=== PATIENT | male | born 1985 | race Caucasian/White ===

== ENCOUNTER 2024-10-10 14:00 | Outpatient (REF) | payer SELFPAY ==
[2024-10-10 16:34] LABS: Alanine Aminotransferase 19 U/L (0-40); Albumin Level 4.3 g/dL (3.5-5.0); Alkaline Phosphatase 79 U/L (39-117); Anion Gap 9 (12-20); Aspartate Amino Transferase 23 U/L (5-37); Bilirubin Total 0.5 mg/dL (0.0-1.0); Blood Urea Nitrogen 9 mg/dL (9-16); Calcium 9.2 mg/dL (8.4-10.2); Carbon Dioxide 26 mmol/L (22-29); Chloride 109 mmol/L (96-108); Cholesterol 151 mg/dL (<200); Estimated Glomerular Filt Rate > 60; Glucose Random 90 mg/dL (60-115); HDL Cholesterol 40 mg/dL (>40); LDL Cholesterol Calculated 97 mg/dL (<100); Sodium 140 mmol/L (135-145); Total Protein 7.2 g/dL (6.5-8.0); Triglycerides 73 mg/dL (<150)
[2024-10-10 16:51] LABS: TSH reflex Free T4 1.08 uIU/mL (0.32-4.0)
[2024-10-10 17:41] LABS: Reflex LDLD? No
[2024-10-13 09:19] LABS: TS Negative Control Passed; TS Panel A 0; TS Panel B 0; TS Positive Control Passed; TSpotTB Negative (Negative)
== END 2024-10-10 14:01 | disposition home or self-care (01) ==
LOC: HO.HHCL 14:00
PROVIDERS: Visit Provider Internal Medicine
DX: E66.3 Overweight (principal); F33.1 Major depressive disorder, recurrent, moderate
CPT/HCPCS: 36415; 80053; 80061; 84443; 86481

== ENCOUNTER 2025-04-19 18:35 | Inpatient (IN) | payer OTHER, SELFPAY ==
[2025-04-19 18:41] VITALS: BP 121/73; PULSE 110; RESP 16; TEMP 37.1; O2SAT 97; BMI 39.0
--- NOTE | 2025-04-19 19:15 | PC.NURSE ---
pt to [facility] from [facility], axox4 ambulatory with steady gait. global climate change analyst done prior to pt being brought over to pod.
--- NOTE | 2025-04-19 20:08 | ECG_ITS ---
Test Reason : MED CLEARANCE Blood Pressure : */* mmHG Vent. Rate : 78 BPM Atrial Rate : 78 BPM P-R Int : 140 ms QRS Dur : 78 ms QT Int : 348 ms P-R-T Axes : 61 64 41 degrees QTcB Int : 396 ms Normal sinus rhythm Normal ECG No previous ECGs available Referred By: Aurora Dutta Electronically Signed By: Mian Sheppard
[2025-04-19 21:07] LABS: MANUAL DIFF FLAG NO
[2025-04-19 21:08] LABS: Hematocrit 43.4 % (42.0-52.0); Hemoglobin 15.4 g/dl (14.0-18.0); Imm Gran Abs Auto 0.03 X10*3/uL (0.00-0.03); Imm Gran Pct Auto 0.3 % (0.0-0.4); Lymphocytes Absolute Auto 1.4 X10*3/uL (1.2-4.9); Mean Corpuscular HGB Conc 35.5 g/dl (31.0-36.0); Mean Corpuscular Hemoglobin 31.9 pg (27.0-33.0); Mean Corpuscular Volume 89.9 fL (80.0-98.0); NRBC Abs Auto 0.000 X10*3/uL (0.0-0.012); NRBC Pct Auto 0.0 /100WBC (0.0-0.2); Platelet Count 209 X10*3/uL (160-400); Red Blood Count 4.83 X10*6/uL (4.60-5.80); White Blood Count 10.6 X10*3/uL (4.8-10.8)
--- NOTE | 2025-04-19 21:21 | ED_ITS ---
HPI - General Adult General Chief complaint: Psychiatric Symptoms Stated complaint: hallucinations, SI Time Seen by Provider: 04/19/25 20:11 Source: patient Mode of arrival: EMS Limitations: altered mental status History of Present Illness ED Provider: Sara Tan PA-C HPI narrative: Patient is a 39 year old male who presents to the ED for auditory hallucinations. He reports these hallucinations began in 2018 after an incident at his [employer]. He states I knelt down to pray and felt something enter me and it took my breath away and I . The voices do not make commands. Reported SI in triage stating he believes he is god and must kill himself to gain insight, but states ?not really? when I asked about harming himself or others. Reports he feels tired and stressed because of the voices. Denies any triggers for increasing stress. Denies visual hallucinations. Reports taking trazodone and abilify. Has not been compliant with medication for the past week. Has therapy twice a month and psychiatry once a month.? Onset (ago): year(s) Related Data Previous Rx's ?Medication ?Instructions ?Recorded aripiprazole 30 mg tablet 30 mg PO DAILY 30 days #30 t abs 04/24/25 melatonin 5 mg tablet 10 mg (2 x 5 mg) PO BEDTIME 04/24/25 insomnia 30 days #60 tabs nicotine 14 mg/24 hr daily 14 mg transdermal DAILY PRN 04/24/25 transdermal patch smoking cessation 28 days #2 8 ea olanzapine 5 mg tablet 5 mg PO BID PRN agitation/vo ices 04/24/25 30 days #60 tabs trazodone 100 mg tablet 200 mg (2 x 100 mg) PO BEDTI ME 30 04/24/25 days #60 tabs Allergies Allergy/AdvReac Type Severity Reaction Status Date / Time From VICODIN AdvReac Severe NAUSEA & Uncoded 06/17/20 15:21 VOMITING Review of Systems 2 Review of Systems: Unable to obtain Yes all other systems are reviewed and are negative [facility] Past Medical History Attestation statement: The following information was validated with the patient. Social History Social History Household Members: None Housing: Homeless Do you presently have visiting nurse or other home services: No Patient Tobacco Use Status: Current everyday Tobacco user Tobacco use type: Cigarette Cigarettes Per Day: 8 e-Cigarette/Vaping Use: Never Used Second Hand Smoke Exposure: Yes Substance Use Type: Marijuana service: No Sexual orientation: Unable to collect Physical Exam ED Vital Signs: Vital Signs - 24 hr 04/20/25 22:46 04/21/25 06:39 Temperature 97.7 F 98.7 F Pulse Rate 90 71 Respiratory Rate 16 18 Blood Pressure 137/71 100/72 Pulse Oximetry 100 99 Oxygen Delivery Method Room Air Room Air BMI result Body Mass Index 39.0 Const Other: Alert Orientation/consciousness: patient oriented x3 Resp Effort & Inspection: normal respiratory effort Cardio Other: Normal peripheral perfusion Skin Other: Warm dry no rash Neuro General: patient oriented x3, gait normal, no focal motor deficits and CN's II- XI intact bilaterally Psych Other: Cooperative for us in the ER, having auditory hallucinations Course Reevaluation(s) Reevaluation #1: Time: 01:56 Date: 04/20/25 Provider: VICTOR HUGO Garcia Patient in physician observation for psychiatric evaluation.? No acute events reported overnight. No current complaints. VS stable.? Patient is in bed search status/pending CARE team evaluation. Will continue to monitor. Time: 01:56 Reevaluation #2: Time: 07:05 Date: 04/20/25 Provider: Edmundo Sarabia MD Patient in physician observation for psychiatric evaluation.? No acute events reported overnight. No current complaints. VS stable.? Patient is in bed search status/pending CARE team evaluation. Will continue to monitor. Time: 07:05 Reevaluation #3: Time: 07:16 Date: 04/21/25 Provider: Edmundo Sarabia MD Patient in physician observation for psychiatric evaluation.? No acute events reported overnight. No current complaints. VS stable.? Patient is in bed search status/pending CARE team evaluation. Will continue to monitor. Additional Reevaluation(s): 04/21 15:56 patient will be admitted to the psychiatric unit this and end observation status Medications Administered Discontinued Medications Generic Name Dose Route Start Last Admin Trade Name Freq PRN Reason Stop Dose Admin Acetaminophen 650 mg 04/22/25 15:11 04/23/25 21:31 Acetaminophen 325 Mg Tablet PO 650 mg Q6H PRN Administration Pain, mod - severe Aripiprazole 30 mg 04/20/25 09:00 04/24/25 08:57 Aripiprazole 30 Mg Tablet PO 30 mg DAILY YUNG Administration Hydroxyzine HCl 25 mg 04/21/25 14:42 04/24/25 05:19 Hydroxyzine Hcl 25 Mg Tablet PO 25 mg Q6H PRN Administration mild anxiety Lorazepam 2 mg 04/20/25 23:47 04/20/25 23:57 Lorazepam 1 Mg Tablet PO 04/20/25 23:48 2 mg ONCE ONE Administration Melatonin 9 mg 04/20/25 04:00 04/23/25 21:30 Melatonin 3 Mg Tablet PO 9 mg BEDTIME YUNG Administration Nicotine 14 mg 04/21/25 16:30 04/24/25 08:56 Nicotine 14 Mg Patch.Td24 TRANSDERMA 14 mg DAILY YUNG Administration Olanzapine 5 mg 04/21/25 14:42 04/24/25 05:19 Olanzapine 5 Mg Tablet PO 5 mg Q4H PRN Administration agitation Trazodone HCl 150 mg 04/20/25 04:00 04/22/25 20:55 Trazodone Hcl 50 Mg Tablet PO 150 mg BEDTIME YUNG Administration Trazodone HCl 200 mg 04/23/25 21:00 04/23/25 21:30 Trazodone Hcl 100 Mg Tablet PO 200 mg BEDTIME YUNG Administration Medical Decision Making Medical Decision Making MDM Narrative: Patient is a 39 year old male who presents to the ED for auditory hallucinations. He reports these hallucinations began in 2018 after an incident at his [employer]. He states I knelt down to pray and felt something enter me and it took my breath away and I . The voices do not make commands. Reported SI in triage stating he believes he is god and must kill himself to gain insight, but states ?not really? when I asked about harming himself or others. Reports he feels tired and stressed because of the voices. Denies any triggers for increasing stress. Denies visual hallucinations. Reports taking trazodone and abilify. Has not been compliant with medication for the past week. Has therapy twice a month and psychiatry once a month.? Problem: Psychiatric illness History: Per patient I have considered the following differential diagnoses: Decompensated psychiatric illness, drug/alcohol intoxication, SI, HI Plan: The patient is certainly appears decompensated, he is also suicidal. Unclear with the patient's baseline is, collateral information we will not be obtained until tomorrow when the care team can assess him. He arrives as a section 12, screening labs including serum ethanol and drug screen we will be obtained I have independently reviewed the following tests: Labs: No leukocytosis, not anemic, no electrolyte abnormality noted, ethanol less than 10, drug screen pending Lab Data 04/19/25 21:00 04/19/25 21:00 Labs: Lab Results 04/19/25 04/20/25 Range/Units 21:00 09:29 WBC 10.6 (4.8-10.8) X10*3/uL RBC 4.83 (4.60-5.80) X10*6/uL Hgb 15.4 (14.0-18.0) g/dl Hct 43.4 (42.0-52.0) % MCV 89.9 (80.0-98.0) fL MCH 31.9 (27.0-33.0) pg MCHC 35.5 (31.0-36.0) g/dl RDW 12.3 (11.0-16.0) % Plt Count 209 (160-400) X10*3/uL MPV 9.7 (9.4-12.4) fL Immature Gran % (Auto) 0.3 (0.0-0.4) % Neut % (Auto) 79.1 H (45-73) % Lymph % (Auto) 13.0 L (20-40) % Early % (Auto) 7.3 (2-11) % Eos % (Auto) 0.1 (0-4) % Baso % (Auto) 0.2 (0-2) % Lymph # (Auto) 1.4 (1.2-4.9) X10*3/uL Early # (Auto) 0.8 (0.1-1.2) X10*3/uL Eos # (Auto) 0.0 (0.0-0.4) X10*3/uL Baso # (Auto) 0.0 (0.0-0.2) X10*3/uL Abs Immat Gran (auto) 0.03 (0.00-0.03) X10*3/uL Absolute Neuts (auto) 8.4 H (2.0-8.3) x10*3/uL Absolute Nucleated RBC 0.000 (0.0-0.012) X10*3/uL Nucleated RBC % (auto) 0.0 (0.0-0.2) /100WBC Sodium 141 (135-145) mmol/L Potassium 3.5 (3.3-5.1) mmol/L Chloride 109 H (96-108) mmol/L Carbon Dioxide 25 (22-29) mmol/L Anion Gap 11 L (12-20) BUN 14 (9-16) mg/dL Creatinine 1.25 (0.5-1.4) mg/dL Estim Creat Clear Calc 105.5 Estimated GFR > 60 Random Glucose 109 (60-115) mg/dL Calcium 8.7 (8.4-10.2) mg/dL Total Bilirubin 0.6 (0.0-1.0) mg/dL AST 58 H (5-37) U/L ALT 35 (0-40) U/L Alkaline Phosphatase 79 (39-117) U/L Total Protein 6.7 (6.5-8.0) g/dL Albumin 4.3 (3.5-5.0) g/dL Urine Color Yellow Urine Appearance Clear Urine pH 6.5 (5.0-9.0) Ur Specific [place] 1.015 (1.005-1.025) Urine Protein Negative (Neg-Trace) mg/dL Urine Glucose (UA) Negative (Negative) mg/dL Urine Ketones Trace (Negative) mg/dL Urine Blood Negative (Negative) Urine Nitrite Negative (Negative) Ur Leukocyte Esterase Negative (Negative) Salicylates < 5.0 L (15-30) mg/dL Urine Opiates Screen Not Detected (Not Detect) Ur Buprenorphine Scrn Not Detected (Not Detect) ng/mL Ur Oxycodone Screen Not Detected (Not Detect) ng/mL Urine Methadone Screen Not Detected (Not Detect) ng/mL Urine Fentanyl Screen Not Detected (Not Detect) Acetaminophen < 3 (<30) mcg/mL Ur Barbiturates Screen Not Detected (Not Detect) Ur Phencyclidine Scrn Not Detected (Not Detect) Ur Amphetamines Screen Not Detected (Not Detect) U Benzodiazepines Scrn Not Detected (Not Detect) Urine Cocaine Screen Not Detected (Not Detect) U Marijuana (THC) Screen POSITIVE H (Not Detect) Ethyl Alcohol < 10 mg/dL COVID-19 (ESTEFANY) Negative (Negative) COVID-19 Clin Com See Note Discharge Plan Discharge Clinical Impression: Auditory hallucinations, Suicidal ideation Patient Disposition: Admitted As Inpatient Interventions: Admission Worksheet (ED) Last Done: 04/21/25 15:57 Discharge Date/Time: 04/21/25 15:57
[2025-04-19 21:22] LABS: Alanine Aminotransferase 35 U/L (0-40); Albumin Level 4.3 g/dL (3.5-5.0); Alkaline Phosphatase 79 U/L (39-117); Anion Gap 11 (12-20); Aspartate Amino Transferase 58 U/L (5-37); Blood Urea Nitrogen 14 mg/dL (9-16); Calcium 8.7 mg/dL (8.4-10.2); Carbon Dioxide 25 mmol/L (22-29); Chloride 109 mmol/L (96-108); Creatinine Clr Calc Pharmacy 105.5; Estimated Glomerular Filt Rate > 60; Potassium 3.5 mmol/L (3.3-5.1); Sodium 141 mmol/L (135-145); Total Protein 6.7 g/dL (6.5-8.0)
[2025-04-19 21:23] LABS: Acetaminophen LAB < 3 mcg/mL (<30); Salicylate < 5.0 mg/dL (15-30)
--- OUTSIDE RECORDS SUMMARY | 2025-04-19 21:29 | XMS_ITS | Clinical Summary ---
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 Name Role Phone Unavailable Primary Care Provider Unavailabl e Social History Tobacco Use Types Packs/Day Years Used Date Smoking Tobacco: Never Assessed Sex and Gender Information Value Date Recorded Sex Assigned at Not on file Legal Sex Male 6:26 PM EDT Gender Identity Not on file Sexual Orientation Not on file Plan of Treatment Health Maintenance Due Date Last Done Comments DTaP,Tdap,and Td Vaccines (1 - Tdap) 2002 Hepatitis B Vaccines (1 of 3 - 19+ 3-dose series) 2002 COVID-19 Vaccine (2023-2 5 season) 2024 Cholesterol Screening (Lipid Panel) 07/27/2024 Depression Screening 07/27/2024 HIV Screening 07/27/2024 Hepatitis C Screening 07/27/2024 Social Influencers of Health Screening 07/27/2024 Influenza Vaccine (#1) 2025 HIB Vaccines Aged Out No longer eligi ble based on patient's age to complete this topic HPV Vaccines Aged Out No longer eligi ble based on patient's age to complete this topic Hepatitis A Vaccines Aged Out No long er eligible based on patient's age to complete this topic IPV Vaccines Aged Out No longer eligi ble based on patient's age to complete this topic MMR Vaccines Aged Out No longer eligi ble based on patient's age to complete this topic Meningococcal ACWY Vaccine Aged Out N o longer eligible based on patient's age to complete this topic Meningococcal B Vaccine Aged Out No l onger eligible based on patient's age to complete this topic Pneumococcal Vaccine: Pediat rics (0 to 5 Years) and At-Risk Patients (6 to 49 Years) Aged Out No longer eligible b ased on patient's age to complete this topic RSV Immunization Patients Un irene 20 months Aged Out No longer eligible b ased on patient's age to complete this topic Varicella Vaccines Aged Out No longer eligible based on patient's age to complete this topic
[2025-04-19 21:30] LABS: COVID-19 Test Negative (Negative); IDNOW Serial# 6674DD1D
[2025-04-20 03:28] VITALS: BP 103/68; PULSE 71; RESP 14; TEMP 36.3; O2SAT 96
--- NOTE | 2025-04-20 05:20 | PC.NURSE ---
pt has been calm/cooperative since arriving to pod, resting in 8. had gotten up couple times requesting drinks. began pacing in the pod prior to being medicated per mar. gave him warm blanket and now sleeping. resp even and unlabored.
--- NOTE | 2025-04-20 07:16 | PC.NURSE ---
Assumed care of patient at 0645, patient appears to be in no apparent distress this am, pacing around [facility] pod, self-dialoguing at times, offering no complaints to this RN. Continue plan of care for CARE team shashank
--- NOTE | 2025-04-20 08:00 | PC.NURSE ---
awaiting Trudi from pharmacy
[2025-04-20] MEDS: ARIPiprazole 30 MG TABLET PO (08:26)
[2025-04-20 09:41] LABS: Appearance Urine Clear; Glucose Urine UA Negative (Negative); PH 6.5 (5.0-9.0); Specific Gravity - Urine 1.015 (1.005-1.025)
[2025-04-20 09:56] LABS: Cannabinoid Screen Urine POSITIVE (Not Detect)
[2025-04-20 14:27] VITALS: BP 123/75; PULSE 73; RESP 18; TEMP 36.6; O2SAT 100
--- NOTE | 2025-04-20 15:43 | PHA.MEDREC ---
Addendum entered by Leida Puente [facility] 04/20/25 15:47: REVIEWED BY PHARMACIST Original Note: Pharmacy Consult ? Medication Reconciliation Pharmacy has reviewed the medication reconciliation completed by nurse. Pharmacy spoke with patient to confirm. Pt confirmed he takes both Trazodone 50mg and 150mg tabs at bedtime for TDD of 200mg; nurse had only confirmed Trazodone 150mg tabs at bedtime.
--- NOTE | 2025-04-20 17:24 | PC.NURSE ---
pt has been pacing around [facility] pod, calmly, offering no complaints to this RN, occasionally heard self-dialoguing, pleasant
--- NOTE | 2025-04-20 22:20 | PC.NURSE ---
Pt appears to be sleeping, respirations even and unlabored, no apparent distress
[2025-04-20 22:46] VITALS: BP 137/71; PULSE 90; RESP 16; TEMP 36.5; O2SAT 100
--- NOTE | 2025-04-20 23:58 | PC.NURSE ---
Took over for CORY Galdamez, medicated pt with 2 mg of ativan.
--- NOTE | 2025-04-21 05:41 | PC.NURSE ---
pt oob to bathroom
[2025-04-21 06:39] VITALS: BP 100/72; PULSE 71; RESP 18; TEMP 37.1; O2SAT 99
[2025-04-21] MEDS: ARIPiprazole 30 MG TABLET PO (08:09)
[2025-04-21 16:03] VITALS: BP 123/71; PULSE 76; RESP 15; TEMP 36.8; O2SAT 100
[2025-04-21 16:06] VITALS: BMI 26.6
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
[2025-04-21] MEDS: Nicotine 14 MG PATCH.TD24 TRANSDERMA (17:21)
[2025-04-21 20:00] VITALS: BP 147/74; PULSE 91; TEMP 36.6; O2SAT 96
[2025-04-22 08:00] VITALS: BP 138/98; PULSE 94; TEMP 36.4; O2SAT 99
[2025-04-22] MEDS: Nicotine 14 MG PATCH.TD24 TRANSDERMA (08:30)
[2025-04-22] MEDS: ARIPiprazole 30 MG TABLET PO (08:31)
[2025-04-22 08:39] LABS: Hemoglobin A1C 148.9582 umol/L; Total Hemoglobin (HGBA1C) 4307.8323 umol/L
[2025-04-22 08:40] LABS: Cholesterol 140 mg/dL (<200); HDL Cholesterol 48 mg/dL (>40); Magnesium 2.2 mg/dL (1.6-2.6); Triglycerides 58 mg/dL (<150)
[2025-04-22 08:59] LABS: Free T4 (Free Thyroxine) 1.22 ng/dL (0.71-1.85); Thyroid Stimulating Hormone 0.92 uIU/mL (0.32-4.0)
[2025-04-22 09:11] LABS: Folate 11.1 ng/mL (> or = 4.0); Vitamin B12 488 pg/mL (200-900)
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
[2025-04-22 19:51] VITALS: BP 130/88; PULSE 103; O2SAT 96
[2025-04-23 08:00] VITALS: BP 120/90; PULSE 79; RESP 15; TEMP 36.4; O2SAT 99
[2025-04-23] MEDS: Nicotine 14 MG PATCH.TD24 TRANSDERMA (08:28)
[2025-04-23] MEDS: ARIPiprazole 30 MG TABLET PO (08:29)
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
[2025-04-23 20:00] VITALS: BP 135/71; PULSE 72; TEMP 36.8; O2SAT 96
[2025-04-24 08:00] VITALS: BP 127/73; PULSE 78; RESP 15; TEMP 36.6; O2SAT 98
[2025-04-24] MEDS: Nicotine 14 MG PATCH.TD24 TRANSDERMA (08:56)
[2025-04-24] MEDS: ARIPiprazole 30 MG TABLET PO (08:57)
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
--- NOTE | 2025-04-24 10:56 | PM.PSYDC ---
DS: Providers Provider Date of Service: 04/24/25 Date of admission: 04/21/25 14:42 Date of discharge: 04/24/25 Primary care physician: Unknown Physician Admitting clinician: Justina Fuentes Attending physician on discharge: Philippe Banuelos DS: Diagnosis Discharge Diagnosis (1) Schizophrenia: Status: Acute (2) Auditory hallucinations: Status: Acute DS: Medications Discharge Medications Home Medications: Previous Rx's ?Medication ?Instructions ?Recorded aripiprazole 30 mg tablet 30 mg PO DAILY 30 days #30 tabs 04/24/25 melatonin 5 mg tablet 10 mg (2 x 5 mg) PO BEDTIME 04/24/25 insomnia 30 days #60 tabs nicotine 14 mg/24 hr daily 14 mg transdermal DAILY PRN 04/24/25 transdermal patch smoking cessation 28 days #28 ea olanzapine 5 mg tablet 5 mg PO BID PRN agitation/voices 04/24/25 30 days #60 tabs trazodone 100 mg tablet 200 mg (2 x 100 mg) PO BEDTIME 30 04/24/25 days #60 tabs Data Data Completed and Pending Completed studies during hospitalization [Text1]: 04/19/25 04/20/25 04/22/25 21:00 09:29 07:54 WBC 10.6 RBC 4.83 Hgb 15.4 Hct 43.4 MCV 89.9 MCH 31.9 MCHC 35.5 RDW 12.3 Plt Count 209 MPV 9.7 Immature Gran % (Auto) 0.3 Neut % (Auto) 79.1 H Lymph % (Auto) 13.0 L [place] % (Auto) 7.3 Eos % (Auto) 0.1 Baso % (Auto) 0.2 Lymph # (Auto) 1.4 [place] # (Auto) 0.8 Eos # (Auto) 0.0 Baso # (Auto) 0.0 Abs Immat Gran (auto) 0.03 Absolute Neuts (auto) 8.4 H Absolute Nucleated RBC 0.000 Nucleated RBC % (auto) 0.0 Sodium 141 Potassium 3.5 Chloride 109 H Carbon Dioxide 25 Anion Gap 11 L BUN 14 Creatinine 1.25 Estim Creat Clear Calc 105.5 Estimated GFR > 60 Random Glucose 109 Estimat Average Glucose 105 Hemoglobin A1c % 5.3 Calcium 8.7 Magnesium 2.2 Total Bilirubin 0.6 AST 58 H ALT 35 Alkaline Phosphatase 79 Total Protein 6.7 Albumin 4.3 Triglycerides 58 Cholesterol 140 LDL Cholesterol, Calc 81 HDL Cholesterol 48 Vitamin B12 488 Folate 11.1 TSH 0.92 Free T4 1.22 Urine Color Yellow Urine Appearance Clear Urine pH 6.5 Ur Specific [place] 1.015 Urine Protein Negative Urine Glucose (UA) Negative Urine Ketones Trace Urine Blood Negative Urine Nitrite Negative Ur Leukocyte Esterase Negative Salicylates < 5.0 L Urine Opiates Screen Not Detected Ur Buprenorphine Scrn Not Detected Ur Oxycodone Screen Not Detected Urine Methadone Screen Not Detected Urine Fentanyl Screen Not Detected Acetaminophen < 3 Ur Barbiturates Screen Not Detected Ur Phencyclidine Scrn Not Detected Ur Amphetamines Screen Not Detected U Benzodiazepines Scrn Not Detected Urine Cocaine Screen Not Detected U Marijuana (THC) Screen POSITIVE H Ethyl Alcohol < 10 COVID-19 (ESTEFANY) Negative COVID-19 Clin Com See Note DS: Summary Time Spent with Patient Time attestation: Total time managing care of this patient today ____ minutes. Discharge Plan Discharge Anticipated Discharge Date/Time: 04/24/25 10:42 Patient Disposition: Home, Self-Care Discharge Diagnosis: Schizophrenia Referrals: [facility] Psychiatry with Luis Ross [Other] - 04/27/25 2:00 pm [facility] Therapy with Michela Roberts [Other] - 05/06/25 10:30 am [facility] Skilled Nursing ([facility] [Other] - 1 Week [facility] [Other] - 1 Week Referral Note: Open Hours Sunday: 12pm-4pm Sunday: 12pm-4pm Sunday: 12pm-4pm : 12pm-4pm Physician,Unknown J [Primary Care Provider, Medical] - 1 Week Discharge Medications: New olanzapine 5 mg Tablet 5 mg PO BID PRN (Reason: agitation/voices) 30 Days Qty: 60 0RF nicotine 14 mg/24 hr Patch 24 Hour 14 mg transdermal DAILY PRN (Reason: smoking cessation) 28 Days Qty: 28 0RF Rx Instructions: remove at bedtime Continued aripiprazole 30 mg tablet 30 mg PO DAILY 30 Days Qty: 30 0RF melatonin 5 mg tablet 10 mg PO BEDTIME 30 Days Qty: 60 0RF Changed trazodone 100 mg tablet 200 mg PO BEDTIME 30 Days Qty: 60 0RF Discontinued trazodone 50 mg tablet 50 mg PO BEDTIME Discharge Orders: Discharge Order (Routine); Ordered 04/24/25 Ordered By: Philippe Banuelos Diet: Regular diet Activity on Discharge: As tolerated Stand Alone Forms: Patient Portal Discharge page Print Language: Slovenian Care Plan Goals: Maintain mood and safe behaviors Take medications as prescribed Continue to pursue sobriety Practice coping skills Continue with outpatient providers and reach out to them as needed Health Concerns: Mood stability and behaviors Plan of Treatment: Follow up with your PCP, psychiatric provider and other outpatient providers regarding above concerns Take medications as prescribed Assessment: Risk assessment at time of discharge:? Patient was interviewed prior to discharge and found to be fully oriented and without any SI or HI. Patient has improved insight and judgment and wants to continue treatment. Patient is not in imminent risk of harm to self or others and has a safety plan that includes presenting to the closest ER or calling 911 if feeling unsafe.? Patient has been observed closely by nursing and unit staff throughout admission; patient has not engaged in any behaviors that suggest dangerousness to self or others and has demonstrated appropriate behaviors and impulse control
== END 2025-04-24 11:30 | disposition home or self-care (01) | DRG 750 ==
LOC: HO.ED 04-20 01:56 → HO.PM5 04-21 14:58
PROVIDERS: Physician Assistant Medical; Admitting Provider Clinical Nurse Specialist Psychiatric/Mental Health, Adult; Emergency Provider Emergency Medicine; Visit Provider Clinical Nurse Specialist Psychiatric/Mental Health, Adult
DX: F20.9 Schizophrenia, unspecified (principal); R45.851 Suicidal ideations; Z20.822 Contact with and (suspected) exposure to COVID-19; Z62.810 Personal history of physical and sexual abuse in childhood; Z59.02 Unsheltered homelessness; Z79.899 Other long term (current) drug therapy
CPT/HCPCS: 36415; 80053; 80061; 80143; 80179; 80307; 81003; 82607; 82746; 83036; 83735; 84439; 84443; 85025; 87635; 93005; 99285; S9485

== ENCOUNTER → 2025-04-19 20:08 | Outpatient (BNV) | payer MEDICAID, SELFPAY | PROVIDERS: Emergency Provider Emergency Medicine; Visit Provider Internal Medicine Cardiovascular Disease | DX: Z13.6 Encounter for screening for cardiovascular disorders (principal) | CPT/HCPCS: 93010 ==

== ENCOUNTER → 2025-04-21 14:42 | Outpatient (BNV) | payer OTHER, SELFPAY | PROVIDERS: Admitting Provider Clinical Nurse Specialist Psychiatric/Mental Health, Adult; Emergency Provider Emergency Medicine; Visit Provider Nurse Practitioner Family | DX: F20.9 Schizophrenia, unspecified (principal) | CPT/HCPCS: 99232 ==

== ENCOUNTER 2025-05-30 10:49 | Inpatient (IN) | payer MEDICAID, OTHER, SELFPAY ==
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
--- NOTE | ~2025-05-30 | XR_ITS ---
CLINICAL HISTORY: injury 2 view right forearm Comparison: None provided Findings: Ulnar styloid fractures likely old/chronic. No dislocation of the imaged wrists of the imaged elbow. Likely gas of the proximal and medial soft tissues. No retained metallic foreign body. IMPRESSION: 1. Imaged ulnar styloid fracture favored to be old/chronic. 2. No dislocation. This document has been electronically signed by: Philippe Corona MD on 06/01/2025 20:56:35
--- NOTE | ~2025-05-30 | XR_ITS ---
EXAMINATION: XR ELBOW, RIGHT CLINICAL INFORMATION: s/p injury, pain COMPARISON: None available. TECHNIQUE: AP, lateral, and oblique views of the right elbow. FINDINGS: No acute cortical disruption or malalignment. No joint effusion. No lytic or blastic lesions. No subcutaneous emphysema. No metallic or radiopaque foreign body. XR/XR elbow RT min 3V IMPRESSION: No acute fracture or dislocation. Negative x-ray. Electronically signed by: Zen Louie MD 06/09/2025 10:06 AM EDT
[2025-05-30 10:56] VITALS: BP 133/72; PULSE 110; RESP 16; TEMP 36.9; O2SAT 96; BMI 28.7
--- OUTSIDE RECORDS SUMMARY | 2025-05-30 11:06 | XMS_ITS | Clinical Summary ---
Author Organization [facility] Address [address] [place] [address] Care Team Providers Care Line Palletizer Name Role Phone Unavailable Primary Care Provider [...] season) 2024 Cholesterol Screening (Lipid Panel) 07/27/2024 HIV Screening 07/27/2024 Hepatitis C Screening 07/27/2024 Social Influencers of Health Screening 07/27/2024 Depression Screening 10/01/2024 Influenza Vaccine (#1) 2025 HIB Vaccines Aged [...]
--- NOTE | 2025-05-30 11:23 | PC.NURSE ---
Pt cooperative on arrival; pacing in hallway; states he hears auditory hallucinations all the time, sometimes from God ; pt states I just want to and get it over with so I can get out of my mind and they'll get out of my mind and my daughter's mind and your mind ; pt reports taking his prescribed meds (Trazadone, Abilify) and smoking marijuana; denies other drugs or ETOH; pt eating/drinking/watching tv in room at this time; awaiting MD encarnacion
--- NOTE | 2025-05-30 11:37 | MHC.EDTECH ---
At patients request, all clothing is being laundered.
--- NOTE | 2025-05-30 11:37 | MHC.EDTECH ---
Patient aware a urine sample is needed. Patient has urine cup at bedside.
[2025-05-30 11:43] LABS: MANUAL DIFF FLAG NO
[2025-05-30 11:47] LABS: Hematocrit 50.0 % (42.0-52.0); Hemoglobin 17.3 g/dl (14.0-18.0); Imm Gran Abs Auto 0.02 X10*3/uL (0.00-0.03); Imm Gran Pct Auto 0.3 % (0.0-0.4); Lymphocytes Absolute Auto 1.7 X10*3/uL (1.2-4.9); Mean Corpuscular HGB Conc 34.6 g/dl (31.0-36.0); Mean Corpuscular Hemoglobin 31.4 pg (27.0-33.0); Mean Corpuscular Volume 90.7 fL (80.0-98.0); NRBC Abs Auto 0.000 X10*3/uL (0.0-0.012); NRBC Pct Auto 0.0 /100WBC (0.0-0.2); Platelet Count 286 X10*3/uL (160-400); Red Blood Count 5.51 X10*6/uL (4.60-5.80); White Blood Count 7.3 X10*3/uL (4.8-10.8)
[2025-05-30 12:04] LABS: Alanine Aminotransferase 15 U/L (0-40); Albumin Level 4.4 g/dL (3.5-5.0); Alkaline Phosphatase 124 U/L (39-117); Anion Gap 15 (12-20); Aspartate Amino Transferase 36 U/L (5-37); Blood Urea Nitrogen 11 mg/dL (9-16); Calcium 9.2 mg/dL (8.4-10.2); Carbon Dioxide 23 mmol/L (22-29); Chloride 107 mmol/L (96-108); Creatinine Clr Calc Pharmacy 101.0; Estimated Glomerular Filt Rate > 60; Potassium 4.4 mmol/L (3.3-5.1); Sodium 141 mmol/L (135-145); Total Protein 7.1 g/dL (6.5-8.0)
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
[2025-05-30 13:07] LABS: Appearance Urine Clear; Glucose Urine UA Negative (Negative); PH 6.0 (5.0-9.0); Specific Gravity - Urine 1.025 (1.005-1.025)
[2025-05-30 13:18] LABS: Cannabinoid Screen Urine POSITIVE (Not Detect)
[2025-05-30 16:02] VITALS: BP 114/72; PULSE 86; RESP 16; TEMP 37.1; O2SAT 98
[2025-05-30] MEDS: ARIPiprazole 30 MG TABLET PO (16:04)
--- NOTE | 2025-05-30 18:45 | PC.NURSE ---
Pt remains calm/cooperative at this time; pt occasionally talking to self quietly in room; pt is bed search at this time
--- NOTE | 2025-05-30 19:35 | PC.NURSE ---
Assumed care pt, pt presents with suicidal ideation, pt states he is having auditory hallucinations to harm himself, pt stated that he sometimes feels depressed, currently pt is calm and cooperative, NAD, pending inpatient bed
[2025-05-31 07:22] VITALS: BP 116/74; PULSE 70; RESP 18; TEMP 37; O2SAT 98
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
[2025-05-31] MEDS: ARIPiprazole 30 MG TABLET PO (08:34)
[2025-05-31 15:50] VITALS: BP 108/72; PULSE 72; RESP 18; TEMP 37.1; O2SAT 99
[2025-06-01] VITALS (7 sets, daily range): BP systolic 126–137; BP diastolic 71–78; PULSE 72–92; RESP 16–20; TEMP 36.7–36.8; O2SAT 96–99
[2025-06-01] MEDS: ARIPiprazole 30 MG TABLET PO (09:08)
--- NOTE | 2025-06-01 10:10 | PC.NURSE ---
Assumed care and report received. Pt is awake and alert, he is compliant with his am med and breakfast. he spends time pacing and listening to music. He is noted to be responding to internal stimuli at times. He denies SI/HI.
--- NOTE | 2025-06-01 14:14 | PHA.MEDREC ---
Pharmacy Consult ? Medication Reconciliation Pharmacy has completed the medication reconciliation. Reviewed med rec done by nursing
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
[2025-06-01] MEDS: diazePAM 10 MG/2 ML CARTRIDGE IM (19:17)
--- NOTE | 2025-06-01 20:45 | PC.NURSE ---
pt is sleeping at this time, calm and cooperative.
--- NOTE | 2025-06-01 23:33 | PC.NURSE ---
pt sleeping at this time.
--- NOTE | 2025-06-02 03:18 | PC.NURSE ---
medicated per mar.
--- NOTE | 2025-06-02 03:35 | PC.NURSE ---
pt given Ice pack and juice.
[2025-06-02] MEDS: OLANZapine ODT 10 MG TAB.RAPDIS TRANSLINGU (06:16)
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
--- NOTE | 2025-06-02 07:41 | PC.NURSE ---
Assumed care, report received, pt is walking the halls in the am and listening to music. he is currently calm and eats breakfast. He continues to respond to internal stimuli.
[2025-06-02] MEDS: ARIPiprazole 30 MG TABLET PO (09:24)
[2025-06-02 09:45] VITALS: BP 114/68; PULSE 72; RESP 14; TEMP 36.4; O2SAT 94
--- NOTE | 2025-06-02 10:10 | ECG_ITS ---
Test Reason : MED CLEARANCE Blood Pressure : */* mmHG Vent. Rate : 83 BPM Atrial Rate : 83 BPM P-R Int : 138 ms QRS Dur : 74 ms QT Int : 352 ms P-R-T Axes : 66 59 44 degrees QTcB Int : 413 ms Normal sinus rhythm Normal ECG When compared with ECG of 19-Apr-2025 20:53, No significant change was found Referred By: Lucia Treviño Electronically Signed By: Mian Sheppard
--- NOTE | 2025-06-02 15:31 | PC.NURSE ---
Pt appears to be increasing in responding to internal stimuli, self dialoguing in room. Given yesterday's outburst that was precipitated by an increase in internal stimuli, this RN case texted DO Kamila. DO Treviño requested that PRN Zyprexa be given early despite not being due until 2108. Pt took PO medication willingly
[2025-06-02 16:31] VITALS: BP 121/82; PULSE 68; RESP 16; TEMP 36.6; O2SAT 95
--- NOTE | 2025-06-02 18:27 | PC.NURSE ---
Pt has remained calm and cooperative, utilizing headphones for music. He walks the unit throughout the shift, he continues to respond to internal stimuli. PRN's are utilized with good effect. He is able to make his needs known. He denies SI/HI
[2025-06-03 00:51] VITALS: BP 135/76; PULSE 104; RESP 17; TEMP 36.6; O2SAT 99
--- NOTE | 2025-06-03 01:21 | PC.NURSE ---
Pt noted to be responding to internal stimuli at increased intervals. Medicated with PRN Zyprexa. Provider Smith craig.
[2025-06-03] MEDS: ARIPiprazole 30 MG TABLET PO (08:12)
--- NOTE | 2025-06-03 12:32 | PHA.MEDREC ---
Pharmacy Consult ? Medication Reconciliation Pharmacy has reviewed the medication reconciliation completed by Nursing.
[2025-06-03 18:17] VITALS: BP 131/78; PULSE 99; RESP 16; TEMP 36.6; O2SAT 99; BMI 27.4
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
[2025-06-03 19:48] VITALS: BP 129/83; PULSE 100; RESP 16; TEMP 36.9; O2SAT 97
[2025-06-04 07:00] VITALS: BMI 27.9
[2025-06-04 08:00] VITALS: BP 118/67; PULSE 86; RESP 18; TEMP 36.4; O2SAT 96
[2025-06-04 08:18] LABS: Hemoglobin A1C 151.0438 umol/L; Total Hemoglobin (HGBA1C) 3974.9228 umol/L
[2025-06-04 08:39] LABS: Cholesterol 123 mg/dL (<200); HDL Cholesterol 48 mg/dL (>40); Triglycerides 45 mg/dL (<150)
[2025-06-04] MEDS: ARIPiprazole 30 MG TABLET PO (08:47)
[2025-06-04 08:56] LABS: Thyroid Stimulating Hormone 1.03 uIU/mL (0.32-4.0)
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
[2025-06-04 20:00] VITALS: BP 157/78; PULSE 88; RESP 18; TEMP 36; O2SAT 97
[2025-06-05 09:07] VITALS: BP 127/80; PULSE 69; RESP 16; TEMP 36.4; O2SAT 98
[2025-06-05] MEDS: ARIPiprazole 30 MG TABLET PO (09:09)
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
[2025-06-05 20:00] VITALS: BP 137/73; PULSE 113; RESP 18; TEMP 37; O2SAT 97
[2025-06-06 08:05] VITALS: BP 117/63; PULSE 132; TEMP 36.9; O2SAT 98
--- NOTE | 2025-06-06 08:33 | HO.PSYCHPN ---
Subjective Subjective Date of Service: 06/06/25 Reason For Visit: CAH Interim History: Met With patient; discussed with team; reviewed chart pt reports he's doing alright; still has AH. His main concern however is struggling with sleep. He says trazodone helps him fall asleep for hours but that he wakes up. Agrees to add Clonidine at bedtime and repeat Trazodone, instead of zyprexa [facility] Mental Status Exam Mental Status Exam Narrative: Appearance: Casually dressed, adequate hygiene Behavior: Calm and cooperative; pacing hallway, internally preoccupied but otherwise in good behavioral/impulse control Eye contact is appropriate, and there are no signs of psychomotor agitation (other than pacing) or retardation Speech: Normal volume and prosody Thought process: goal oriented; organized Thought content: on DC; Religiously preoccupied Mood: calm Affect: a little Constricted SI:denies HI:denies VH/AH: Reports auditory hallucinations Delusions:non expressed Insight/judgment: Impaired but at baseline and adequate Diagnostics Vital Signs (24Hr): Vital Signs - 24 hr 06/05/25 09:07 06/05/25 20:00 06/06/25 08:05 Temperature 97.5 F 98.6 F 98.4 F Pulse Rate 69 113 H 132 H Respiratory Rate 16 18 Blood Pressure 127/80 137/73 117/63 Pulse Oximetry 98 97 98 Oxygen Delivery Method Room Air Room Air Room Air BMI result Body Mass Index 27.9 Labs 05/30/25 11:36 05/30/25 11:36 Labs: Laboratory Results - last 48 hr 06/04/25 07:55 Triglycerides 45 Cholesterol 123 LDL Cholesterol, Calc 66 HDL Cholesterol 48 TSH 1.03 Medications Medications Current Medications Acetaminophen (Acetaminophen 325 Mg Tablet) 650 mg PO Q6H PRN PRN Reason: Headache/Pain, Scale 1-10 Last Admin: 06/05/25 20:37 Dose: 650 mg Al Hydroxide/Mg Hydroxide (Magnesium Hydrox/Alum Hydrox 30 Ml Oral.Susp) 30 ml PO Q6H PRN PRN Reason: Heartburn/Nausea Aripiprazole (Aripiprazole 30 Mg Tablet) 30 mg PO DAILY [facility] Last Admin: 06/05/25 09:09 Dose: 30 mg Hydroxyzine HCl (Hydroxyzine Hcl 25 Mg Tablet) 25 mg PO Q6H PRN PRN Reason: mild anxiety Last Admin: 06/05/25 20:37 Dose: 25 mg Magnesium Hydroxide (Milk Of Magnesia 30 Ml Oral.Susp) 30 ml PO DAILY PRN PRN Reason: Constipation Melatonin (Melatonin 3 Mg Tablet) 6 mg PO BEDTIME [facility] Last Admin: 06/05/25 20:37 Dose: 6 mg Nicotine Polacrilex (Nicotine Polacrilex 2 Mg Gum) 2 mg BUCCAL Q2H PRN PRN Reason: Nicotine Cravings Last Admin: 06/04/25 18:31 Dose: 2 mg Nicotine Polacrilex (Nicotine Polacrilex 2 Mg Gum) 4 mg BUCCAL Q2H PRN PRN Reason: Nicotine Cravings Last Admin: 06/05/25 17:45 Dose: 4 mg Olanzapine (Olanzapine 5 Mg Tablet) 5 mg PO BID PRN PRN Reason: agitation/voices Last Admin: 06/04/25 22:25 Dose: 5 mg Olanzapine (Olanzapine 5 Mg Tablet) 5 mg PO BEDTIME [facility] Last Admin: 06/05/25 20:37 Dose: 5 mg Trazodone HCl (Trazodone Hcl 100 Mg Tablet) 200 mg PO BEDTIME [facility] Last Admin: 06/05/25 20:37 Dose: 200 mg Allergies Allergies Allergy/AdvReac Type Severity Reaction Status Date / Time From VICODIN AdvReac Severe NAUSEA & Uncoded 05/30/25 10:59 VOMITING Assessment & Plan Assessment & Plan (1) Schizophrenia: Status: Acute Code(s): F20.9 - Schizophrenia, unspecified (2) Suicidal ideation: Status: Acute Code(s): R45.851 - Suicidal ideations (3) Auditory hallucinations: Status: Acute Code(s): R44.0 - Auditory hallucinations Plan 39-year-old male with history of schizophrenia and auditory hallucinations presents to [facility] ED on 05/30/2025 for command auditory hallucinations to hurt himself or others in the context of medication noncompliance. On interview with this provider and his social science instructor, the patient states that he is here for same reasons as last visit. He notes that he has been Falling in this resurrection since 2019, after he while on his knees and [place] Gunderson took his breath away. He states that he has been falling on his knee outside the streets to pray and get orgasmic eruption. He describes orgasmic eruption as a flow of energy for a new beginning. He notes that everybody thinks I am crazy, including his mother, brother, and baby rebeca. His baby rebeca called the police on him and has a current restraining order on him. He has been experiencing continuous auditory hallucinations to , since 2019, he denies command auditory hallucination to kill himself. He denies visual hallucination but states that I see who is fucking my baby rebeca when I close my eyes. He notes that 5 days ago, he held a knife kill himself but did not. Reports current SI without a plan. He denies HI. He reports depression and states that he is always nervous. He was discharged with [address] in 04/24/2025. After he left the hospital, he lived with his cousin and then with a girl he met, before going to live with his mother. He admits to not being compliant with his medications. He smokes 1-2 blunts of cannabis daily. He smokes 10 cigarettes daily. He drinks a shot/nip socially. Formulation/Clinical reasoning: Schizophrenia: Patient experiencing worsening symptoms due to medication noncompliance. Daily cannabis use may also exacerbate his symptoms. He is not interested in [facility] due to phobia of needles. Continue current treatment regimen. Hospital course: 06/16 pt reports he's doing alright; still has AH. His main concern however is struggling with sleep. He says trazodone helps him fall asleep for hours but that he wakes up. Agrees to add Clonidine at bedtime and repeat Trazodone, instead of zyprexa qhs Plan Admit to . CV 15 minutes check. Start Clondine 0.1mg qhs add repeat 50mg prn for continued insomnia change zyprexa to prn Diagnostics as needed. Collateral contact. Continue remainder of regime. Encouraged full milieu. Discharge planning. Meds: Abilify 30 mg daily, trazodone 200 mg daily at bedtime Patient educated on: diagnosis and medication risk/benefits Informed Consent: understands Reason for continued inpatient stay Substantial Risk for: rapid decompensation Time Spent With Patient Time: Total time managing care of this patient today ____ minutes.
[2025-06-06] MEDS: ARIPiprazole 30 MG TABLET PO (08:56)
[2025-06-06 19:38] VITALS: BP 134/63; PULSE 88; RESP 16; TEMP 37.3; O2SAT 98
[2025-06-07 07:56] VITALS: BP 110/73; PULSE 73; TEMP 36.4; O2SAT 99
[2025-06-07] MEDS: ARIPiprazole 30 MG TABLET PO (08:06)
--- NOTE | 2025-06-07 09:57 | P.PNPSI_ITS ---
Subjective Subjective Date of Service: 06/07/25 Reason For Visit: CAH Interim History: met with patient; discussed with team Patient reports that he is doing well; he continues to have AH but says it is tolerable and does not want to explore other medication options. Patient complains of right forearm pain from ED when he used it to hit the wall; asks for ibuprofen; BUN/creatinine WNL Mental Status Exam Mental Status Exam Narrative: Appearance: Casually dressed, adequate hygiene Behavior: Calm and cooperative; pacing hallway, internally preoccupied but otherwise in good behavioral/impulse control Eye contact is appropriate, and there are no signs of psychomotor agitation (other than pacing) or retardation Speech: Normal volume and prosody Thought process: goal oriented; organized Thought content: wnl Mood: calm Affect: brighter SI:denies HI:denies VH/AH: Reports auditory hallucinations Delusions:non expressed Insight/judgment: Impaired but at baseline and adequate Diagnostics Vital Signs (24Hr): Vital Signs - 24 hr 06/06/25 19:38 06/07/25 07:56 Temperature 99.1 F 97.5 F Pulse Rate 88 73 Respiratory Rate 16 Blood Pressure 134/63 110/73 Pulse Oximetry 98 99 Oxygen Delivery Method Room Air Room Air BMI result Body Mass Index 27.9 Labs 05/30/25 11:36 05/30/25 11:36 Medications Medications Current Medications Acetaminophen (Acetaminophen 325 Mg Tablet) 650 mg PO Q6H PRN PRN Reason: Headache/Pain, Scale 1-10 Last Admin: 06/07/25 08:07 Dose: 650 mg Al Hydroxide/Mg Hydroxide (Magnesium Hydrox/Alum Hydrox 30 Ml Oral.Susp) 30 ml PO Q6H PRN PRN Reason: Heartburn/Nausea Aripiprazole (Aripiprazole 30 Mg Tablet) 30 mg PO DAILY YUNG Last Admin: 06/07/25 08:06 Dose: 30 mg Clonidine HCl (Clonidine Hcl 0.1 Mg Tablet) 0.1 mg PO BEDTIME YUNG; Protocol Last Admin: 06/06/25 20:33 Dose: 0.1 mg Hydroxyzine HCl (Hydroxyzine Hcl 25 Mg Tablet) 25 mg PO Q6H PRN PRN Reason: mild anxiety Last Admin: 06/05/25 20:37 Dose: 25 mg Magnesium Hydroxide (Milk Of Magnesia 30 Ml Oral.Susp) 30 ml PO DAILY PRN PRN Reason: Constipation Melatonin (Melatonin 3 Mg Tablet) 6 mg PO BEDTIME YUNG Last Admin: 06/06/25 20:33 Dose: 6 mg Nicotine Polacrilex (Nicotine Polacrilex 2 Mg Gum) 2 mg BUCCAL Q2H PRN PRN Reason: Nicotine Cravings Last Admin: 06/04/25 18:31 Dose: 2 mg Nicotine Polacrilex (Nicotine Polacrilex 2 Mg Gum) 4 mg BUCCAL Q2H PRN PRN Reason: Nicotine Cravings Last Admin: 06/06/25 20:35 Dose: 4 mg Olanzapine (Olanzapine 5 Mg Tablet) 5 mg PO BID PRN PRN Reason: agitation/voices Last Admin: 06/04/25 22:25 Dose: 5 mg Trazodone HCl (Trazodone Hcl 100 Mg Tablet) 200 mg PO BEDTIME YUNG Last Admin: 06/06/25 20:33 Dose: 200 mg Trazodone HCl (Trazodone Hcl 50 Mg Tablet) 50 mg PO BEDTIME MRX1 PRN PRN Reason: for CONTinued insomnia Last Admin: 06/07/25 02:26 Dose: 50 mg Allergies Allergies Allergy/AdvReac Type Severity Reaction Status Date / Time From VICODIN AdvReac Severe NAUSEA & Uncoded 05/30/25 10:59 VOMITING Assessment & Plan Assessment & Plan (1) Schizophrenia: Status: Acute Code(s): F20.9 - Schizophrenia, unspecified (2) Suicidal ideation: Status: Acute Code(s): R45.851 - Suicidal ideations (3) Auditory hallucinations: Status: Acute Code(s): R44.0 - Auditory hallucinations Plan 39-year-old male with history of schizophrenia and auditory hallucinations presents to [facility] ED on 05/30/2025 for command auditory hallucinations to hurt himself or others in the context of medication noncompliance. On interview with this provider and his social service assistant, the patient states that he is here for same reasons as last visit. He notes that he has been Falling in this resurrection since 2019, after he while on his knees and [place] Neptali took his breath away. He states that he has been falling on his knee outside the streets to pray and get orgasmic eruption. He describes orgasmic eruption as a flow of energy for a new beginning. He notes that everybody thinks I am crazy, including his mother, brother, and baby mama. His baby rebeca called the police on him and has a current restraining order on him. He has been experiencing continuous auditory hallucinations to , since 2019, he denies command auditory hallucination to kill himself. He denies visual hallucination but states that I see who is fucking my baby rebeca when I close my eyes. He notes that 5 days ago, he held a knife kill himself but did not. Reports current SI without a plan. He denies HI. He reports depression and states that he is always nervous. He was discharged with [address] health in 04/24/2025. After he left the hospital, he lived with his cousin and then with a girl he met, before going to live with his mother. He admits to not being compliant with his medications. He smokes 1-2 blunts of cannabis daily. He smokes 10 cigarettes daily. He drinks a shot/nip socially. Formulation/Clinical reasoning: Schizophrenia: Patient experiencing worsening symptoms due to medication noncompliance. Daily cannabis use may also exacerbate his symptoms. He is not interested in KRUGER due to phobia of needles. Continue current treatment regimen. Hospital course: 06/16 pt reports he's doing alright; still has AH. His main concern however is struggling with sleep. He says trazodone helps him fall asleep for hours but that he wakes up. Agrees to add Clonidine at bedtime and repeat Trazodone, instead of zyprexa qhs 06/07 Patient reports that he is doing well; he continues to have AH but says it is tolerable and does not want to explore other medication options. Patient complains of right forearm pain from ED when he used it to hit the wall; asks for ibuprofen; BUN/creatinine WNL -patient reports slept well last night only waking up once and using repeat trazodone Plan Admit to . CV 15 minutes check. Ibuprofen 600 mg t.i.d. for 3 days Continue Clondine 0.1mg qhs add repeat trazodone 50mg prn for continued insomnia change zyprexa to prn Diagnostics as needed. Collateral contact. Continue remainder of regime. Encouraged full milieu. Discharge planning. Meds: Abilify 30 mg daily, trazodone 200 mg daily at bedtime Patient educated on: diagnosis, medication risk/benefits and medical condition Informed Consent: understands Reason for continued inpatient stay Substantial Risk for: stable for discharge Time Spent With Patient Time: Total time managing care of this patient today ____ minutes.
[2025-06-07 19:45] VITALS: BP 123/66; PULSE 81; RESP 18; TEMP 37.1; O2SAT 97
[2025-06-08] MEDS: ARIPiprazole 30 MG TABLET PO (08:11)
[2025-06-08 08:17] VITALS: BP 97/51; PULSE 64; TEMP 36.2; O2SAT 99
--- NOTE | 2025-06-08 09:39 | P.PNPSI_ITS ---
Subjective Subjective Date of Service: 06/08/25 Reason For Visit: CAH Subjective Notes: Conditional Voluntary Healthcare Proxy: No Guardianship: No Medical Problems Affecting Mental Status: No Interim History: Reports feeling improved. Sleep and SIDNEY still persist with Trazodone at 200 mg. Pt will use the additional 2 prn 50 mg doses this evening and will re-eval. TDN to Wed. We have encouraged KRUGER, however, pt is undecided. Continues to report arm pain, with evident ecchymosis Medication Compliance: Yes Side effects from medications: No Attending Groups: Intermittent Review of Systems Acute medical concerns: No Medical Review of Systems: unchanged Review of Systems Review of Systems Denies Mental Status Exam Mental Status Exam Patient Appearance: Appropriate Patient Orientation: Person, Place, Time and Situation Level of Consciousness: Alert Patient Behavior: Talkative and Good Eye Contact Mood Description: Calm Affect Description: Calm Patient Cognition Impaired: No Ability to Follow Directions: Good Speech Pattern: Appropriate and Spontaneous Speech Memory Description: Intact Hallucinations: Auditory Delusions: Not Present Thought Process: Intact and Distracted Thought Content: positive for [place] and positive for Circumstantial Judgement: Good Diagnostics Vital Signs (24Hr): Vital Signs - 24 hr 06/07/25 19:45 06/08/25 08:17 Temperature 98.7 F 97.2 F Pulse Rate 81 64 Respiratory Rate 18 Blood Pressure 123/66 97/51 L Pulse Oximetry 97 99 Oxygen Delivery Method Room Air Room Air BMI result Body Mass Index 27.9 Labs 05/30/25 11:36 05/30/25 11:36 Medications Medications Current Medications Acetaminophen (Acetaminophen 325 Mg Tablet) 650 mg PO Q6H PRN PRN Reason: Headache/Pain, Scale 1-10 Last Admin: 06/07/25 20:26 Dose: 650 mg Al Hydroxide/Mg Hydroxide (Magnesium Hydrox/Alum Hydrox 30 Ml Oral.Susp) 30 ml PO Q6H PRN PRN Reason: Heartburn/Nausea Aripiprazole (Aripiprazole 30 Mg Tablet) 30 mg PO DAILY YUNG Last Admin: 06/08/25 08:11 Dose: 30 mg Clonidine HCl (Clonidine Hcl 0.1 Mg Tablet) 0.1 mg PO BEDTIME YUNG; Protocol Last Admin: 06/07/25 20:24 Dose: 0.1 mg Hydroxyzine HCl (Hydroxyzine Hcl 25 Mg Tablet) 25 mg PO Q6H PRN PRN Reason: mild anxiety Last Admin: 06/07/25 20:36 Dose: 25 mg Ibuprofen (Ibuprofen 600 Mg Tablet) 600 mg PO TIDWM YUNG Stop: 06/09/25 23:00 Last Admin: 06/08/25 08:10 Dose: 600 mg Magnesium Hydroxide (Milk Of Magnesia 30 Ml Oral.Susp) 30 ml PO DAILY PRN PRN Reason: Constipation Melatonin (Melatonin 3 Mg Tablet) 6 mg PO BEDTIME YUNG Last Admin: 06/07/25 20:25 Dose: 6 mg Nicotine Polacrilex (Nicotine Polacrilex 2 Mg Gum) 2 mg BUCCAL Q2H PRN PRN Reason: Nicotine Cravings Last Admin: 06/04/25 18:31 Dose: 2 mg Nicotine Polacrilex (Nicotine Polacrilex 2 Mg Gum) 4 mg BUCCAL Q2H PRN PRN Reason: Nicotine Cravings Last Admin: 06/08/25 09:25 Dose: 4 mg Olanzapine (Olanzapine 5 Mg Tablet) 5 mg PO BID PRN PRN Reason: agitation/voices Last Admin: 06/08/25 03:38 Dose: 5 mg Trazodone HCl (Trazodone Hcl 100 Mg Tablet) 200 mg PO BEDTIME YUNG Last Admin: 06/07/25 20:24 Dose: 200 mg Trazodone HCl (Trazodone Hcl 50 Mg Tablet) 50 mg PO BEDTIME MRX1 PRN PRN Reason: for CONTinued insomnia Last Admin: 06/08/25 03:38 Dose: 50 mg Allergies Allergies Allergy/AdvReac Type Severity Reaction Status Date / Time From VICODIN AdvReac Severe NAUSEA & Uncoded 05/30/25 10:59 VOMITING Assessment & Plan Assessment & Plan (1) Schizophrenia: Status: Acute Code(s): F20.9 - Schizophrenia, unspecified (2) Suicidal ideation: Status: Acute Code(s): R45.851 - Suicidal ideations (3) Auditory hallucinations: Status: Acute Code(s): R44.0 - Auditory hallucinations Plan 39-year-old male with history of schizophrenia and auditory hallucinations presents to [facility] [place] on 05/30/2025 for command auditory hallucinations to hurt himself or others in the context of medication noncompliance. On interview with this provider and his social media assistant, the patient states that he is here for same reasons as last visit. He notes that he has been Falling in this resurrection since 2019, after he while on his knees and [place] Gund[place] took his breath away. He states that he has been falling on his knee outside the streets to pray and get orgasmic eruption. He describes orgasmic eruption as a flow of energy for a new beginning. He notes that everybody thinks I am crazy, including his mother, brother, and baby rebeca. His baby rebeca called the police on him and has a current restraining order on him. He has been experiencing continuous auditory hallucinations to , since 2019, he denies command auditory hallucination to kill himself. He denies visual hallucination but states that I see who is fucking my baby rebeca when I close my eyes. He notes that 5 days ago, he held a knife kill himself but did not. Reports current SI without a plan. He denies HI. He reports depression and states that he is always nervous. He was discharged with [address] in 04/24/2025. After he left the hospital, he lived with his cousin and then with a girl he met, before going to live with his mother. He admits to not being compliant with his medications. He smokes 1-2 blunts of cannabis daily. He smokes 10 cigarettes daily. He drinks a shot/nip socially. Formulation/Clinical reasoning: Schizophrenia: Patient experiencing worsening symptoms due to medication noncompliance. Daily cannabis use may also exacerbate his symptoms. He is not interested in KRUGER due to phobia of needles. Continue current treatment regimen. Hospital course: 06/16 pt reports he's doing alright; still has AH. His main concern however is struggling with sleep. He says trazodone helps him fall asleep for hours but that he wakes up. Agrees to add Clonidine at bedtime and repeat Trazodone, instead of zyprexa qhs 06/07 Patient reports that he is doing well; he continues to have AH but says it is tolerable and does not want to explore other medication options. Patient complains of right forearm pain from ED when he used it to hit t he wall; asks for ibuprofen; BUN/creatinine WNL -patient reports slept well last night only waking up once and using repeat trazodone 06/08 Will utilize prn Trazodone this evening and re-eval. Plan Admit to M5. CV 15 minutes check. Ibuprofen 600 mg t.i.d. for 3 days Continue Clondine 0.1mg qhs add repeat trazodone 50mg prn for continued insomnia change zyprexa to prn Diagnostics as needed. Collateral contact. Continue remainder of regime. Encouraged full milieu. Discharge planning. Meds: Abilify 30 mg daily, trazodone 200 mg daily at bedtime Reason for continued inpatient stay Substantial Risk for: rapid decompensation Time Spent With Patient Time: Total time managing care of this patient today ____ minutes.
[2025-06-08 20:00] VITALS: BP 114/65; PULSE 86; RESP 18; TEMP 36.8; O2SAT 97
[2025-06-08 20:38] VITALS: BP 114/63
[2025-06-09 07:49] VITALS: BP 142/71; PULSE 93; TEMP 36.3; O2SAT 100
[2025-06-09] MEDS: ARIPiprazole 30 MG TABLET PO (08:34)
--- NOTE | 2025-06-09 10:00 | P.PNPSI_ITS ---
Subjective Subjective Date of Service: 06/09/25 Reason For Visit: CAH Subjective Notes: Conditional Voluntary and 3 Day Healthcare Proxy: No Guardianship: No Medical Problems Affecting Mental Status: No Interim History: Pt reports added prn's of Trazodone help, asks to increase HS dose of Trazodone to 300 mg. Will trial. Pt has agreed to KRUGER Abilify. Will order Maintena for 06/11 prior to DC. Will decrease po to 20 mg for 14 days per Escobar recommendation to allow KRUGER to enter his system. Attending groups. Feels ready to discharge Pain in elbow persists. XRay results negative. Medication Compliance: Yes Side effects from medications: No Attending Groups: Yes Review of Systems Acute medical concerns: No Medical Review of Systems: unchanged Review of Systems Review of Systems Elbow/arm pain- elbow xray negative Mental Status Exam Mental Status Exam Patient Appearance: Appropriate Patient Orientation: Person, Place, Time and Situation Level of Consciousness: Alert Patient Behavior: Talkative and Good Eye Contact Mood Description: Calm Affect Description: Calm Patient Cognition Impaired: No Ability to Follow Directions: Good Speech Pattern: Appropriate and Spontaneous Speech Memory Description: Intact Hallucinations: Auditory Delusions: Not Present Thought Process: Intact and Distracted Thought Content: positive for [place] and positive for Circumstantial Judgement: Good Diagnostics Vital Signs (24Hr): Vital Signs - 24 hr 06/08/25 20:00 06/08/25 20:38 06/09/25 07:49 Temperature 98.3 F 97.4 F Pulse Rate 86 93 Respiratory Rate 18 Blood Pressure 114/65 114/63 142/71 H Pulse Oximetry 97 100 Oxygen Delivery Method Room Air Room Air BMI result Body Mass Index 27.9 Labs 05/30/25 11:36 05/30/25 11:36 Medications Medications Current Medications Acetaminophen (Acetaminophen 325 Mg Tablet) 650 mg PO Q6H PRN PRN Reason: Headache/Pain, Scale 1-10 Last Admin: 06/07/25 20:26 Dose: 650 mg Al Hydroxide/Mg Hydroxide (Magnesium Hydrox/Alum Hydrox 30 Ml Oral.Susp) 30 ml PO Q6H PRN PRN Reason: Heartburn/Nausea Aripiprazole (Aripiprazole 30 Mg Tablet) 30 mg PO DAILY YUNG Last Admin: 06/09/25 08:34 Dose: 30 mg Clonidine HCl (Clonidine Hcl 0.1 Mg Tablet) 0.1 mg PO BEDTIME YUNG; Protocol Last Admin: 06/08/25 20:38 Dose: 0.1 mg Hydroxyzine HCl (Hydroxyzine Hcl 25 Mg Tablet) 25 mg PO Q6H PRN PRN Reason: mild anxiety Last Admin: 06/09/25 06:35 Dose: 25 mg Ibuprofen (Ibuprofen 600 Mg Tablet) 600 mg PO TIDWM YUNG Stop: 06/09/25 23:00 Last Admin: 06/09/25 08:33 Dose: 600 mg Magnesium Hydroxide (Milk Of Magnesia 30 Ml Oral.Susp) 30 ml PO DAILY PRN PRN Reason: Constipation Melatonin (Melatonin 3 Mg Tablet) 6 mg PO BEDTIME YUNG Last Admin: 06/08/25 20:37 Dose: 6 mg Nicotine Polacrilex (Nicotine Polacrilex 2 Mg Gum) 2 mg BUCCAL Q2H PRN PRN Reason: Nicotine Cravings Last Admin: 06/04/25 18:31 Dose: 2 mg Nicotine Polacrilex (Nicotine Polacrilex 2 Mg Gum) 4 mg BUCCAL Q2H PRN PRN Reason: Nicotine Cravings Last Admin: 06/08/25 12:23 Dose: 4 mg Olanzapine (Olanzapine 5 Mg Tablet) 5 mg PO BID PRN PRN Reason: agitation/voices Last Admin: 06/09/25 06:35 Dose: 5 mg Trazodone HCl (Trazodone Hcl 100 Mg Tablet) 200 mg PO BEDTIME YUNG Last Admin: 06/08/25 20:37 Dose: 200 mg Trazodone HCl (Trazodone Hcl 50 Mg Tablet) 50 mg PO BEDTIME MRX1 PRN PRN Reason: for CONTinued insomnia Last Admin: 06/09/25 01:19 Dose: 50 mg Allergies Allergies Allergy/AdvReac Type Severity Reaction Status Date / Time From VICODIN AdvReac Severe NAUSEA & Uncoded 05/30/25 10:59 VOMITING Assessment & Plan Assessment & Plan (1) Schizophrenia: Status: Acute Code(s): F20.9 - Schizophrenia, unspecified (2) Suicidal ideation: Status: Acute Code(s): R45.851 - Suicidal ideations (3) Auditory hallucinations: Status: Acute Code(s): R44.0 - Auditory hallucinations Plan 39-year-old male with history of schizophrenia and auditory hallucinations presents [place] [facility] [place] 05/30/[place]25 for command auditory hallucinations to hurt himself or others in the context of medication noncompliance. On interview with this provider and his social services technician, the patient states that he is here for same reasons as last visit. He notes that he has been Falling in this resurrection since 2019, after he while on his knees and [place] Gund[place] took his breath away. He states that he has been falling on his knee outside the streets to pray and get orgasmic eruption. He describes orgasmic eruption as a flow of energy for a new beginning. He notes that everybody thinks I am crazy, including his mother, brother, and baby jackya. His baby jackya called the police on him and has a current restraining order on him. He has been experiencing continuous auditory hallucinations to , since 2019, he denies command auditory hallucination to kill himself. He denies visual hallucination but states that I see who is fucking my baby jackya when I close my eyes. He notes that 5 days ago, he held a knife kill himself but did not. Reports current SI without a plan. He denies HI. He reports depression and states that he is always nervous. He was discharged with [facility] behavioral health in 04/24/2025. After he left the hospital, he lived with his cousin and then with a girl he met, before going to live with his mother. He admits to not being compliant with his medications. He smokes 1-2 blunts of cannabis daily. He smokes 10 cigarettes daily. He drinks a shot/nip socially. Formulation/Clinical reasoning: Schizophrenia: Patient experiencing worsening symptoms due to medication noncompliance. Daily cannabis use may also exacerbate his symptoms. He is not interested in KRUGER due to phobia of needles. Continue current treatment regimen. Hospital course: 06/16 pt reports he's doing alright; still has AH. His main concern however is struggling with sleep. He says trazodone helps him fall asleep for hours but that he wakes up. Agrees to add Clonidine at bedtime and repeat Trazodone, instead of zyprexa qhs 06/07 Patient reports that he is doing well; he continues to have AH but says it is tolerable and does not want to explore other medication options. Patient complains of right forearm pain from ED when he used it to hit the wall; asks for ibuprofen; BUN/creatinine WNL -patient reports slept well last night only waking up once and using repeat trazodone 06/09 Abilify Maintena 400 mg IM 06/10 Decrease po Abilify to 20 mg daily for 14 days post injection Increase Trazodone to 300 mg HS DC on a TDN on 06/10/25 Plan Admit to M5. CV 15 minutes check. Ibuprofen 600 mg t.i.d. for 3 days Continue Clondine 0.1mg qhs add repeat trazodone 50mg prn for continued insomnia change zyprexa to prn Diagnostics as needed. Collateral contact. Continue remainder of regime. Encouraged full milieu. Discharge planning. Meds: Abilify 30 mg daily, trazodone 200 mg daily at bedtime Reason for continued inpatient stay Substantial Risk for: rapid decompensation Time Spent With Patient Time: Total time managing care of this patient today ____ minutes.
[2025-06-09 20:00] VITALS: BP 137/69; PULSE 84; RESP 10; TEMP 36.9; O2SAT 98
[2025-06-10 08:06] VITALS: PULSE 71; RESP 122; TEMP 36.4; O2SAT 99
[2025-06-10] MEDS: ARIPiprazole ER 400 MG SUSER.SYR IM (10:35)
--- NOTE | 2025-06-10 11:31 | P.DS_ITS ---
DS: Providers Provider Date of Service: 06/10/25 Date of admission: 06/03/25 11:24 Date of discharge: 06/10/25 Primary care physician: Unknown Physician Admitting clinician: Justina Fuentes Attending physician on admission: Jose Cortés Attending physician on discharge: Jose Cortés Discharging clinician: Anna Ordoñez DS: Diagnosis Discharge Diagnosis (1) Schizophrenia: Status: Acute (2) Suicidal ideation: Status: Acute (3) Auditory hallucinations: Status: Acute DS: Medications Discharge Medications Home Medications: Previous Rx's ?Medication ?Instructions ?Recorded olanzapine 5 mg tablet 5 mg PO BID PRN agitation/vo ices 04/24/25 30 days #60 tabs acetaminophen 325 mg tablet 650 mg (2 x 325 mg) PO Q6H PRN 06/10/25 Headache/Pain, Scale 1-10 #0 tabs aripiprazole 20 mg tablet (Abilify) 20 mg PO DAILY #14 tabs 06/10/25 clonidine HCl 0.1 mg tablet 0.1 mg PO BEDTIME #30 tabs 06/10/25 hydroxyzine HCl 25 mg tablet 25 mg PO Q6H PRN mild anx iety #30 06/10/25 tabs melatonin 3 mg tablet 6 mg (2 x 3 mg) PO BEDTIME # 60 tabs 06/10/25 nicotine (polacrilex) 2 mg gum 4 mg buccal Q2H PRN Kraig otine 06/10/25 Cravings #110 ea trazodone 100 mg tablet 300 mg (3 x 100 mg) PO BEDTI ME #90 06/10/25 tabs Mental Status Exam Mental Status Exam Patient Appearance: Appropriate Patient Orientation: Person, Place, Time and Situation Level of Consciousness: Alert Patient Behavior: Talkative and Good Eye Contact Mood Description: Calm Affect Description: Calm Patient Cognition Impaired: No Ability to Follow Directions: Good Speech Pattern: Appropriate and Spontaneous Speech Memory Description: Intact Hallucinations: Auditory Delusions: Not Present Thought Process: Intact and Distracted Thought Content: positive for [place] and positive for Circumstantial Judgement: Good Data Data Completed and Pending Completed studies during hospitalization [Text1]: 06/04/25 07:55 Estimat Average Glucose 114 Hemoglobin A1c % 5.6 Triglycerides 45 Cholesterol 123 LDL Cholesterol, Calc 66 HDL Cholesterol 48 TSH 1.03 Imaging Diagnostic Imaging Impressions Elbow X-Ray 06/09/25 09:51 IMPRESSION: No acute fracture or dislocation. Negative x-ray. Electronically signed by: Zen Louie MD 06/09/2025 10:06 AM EDT DS: Summary Hospital Course Hospital Course: Admission to adult psychiatry for exacerbation of schziophrenia with CAH to harm himself and others. Pt reports medication non compliance prior to admission. He also has a episcopalian preoccupation which he has presented with by history. Medications were evaluated and re-established. Pt was able to stabilize. He r eports AH continues, however, they are not command and are the voices of my ancestors giving me good advice. Pt knows the team well and they were able to continue to advocate for pt to begin an KRUGER, which he chose to do. Abilify Maintena 400 mg IM was initiated on 06/10. Pt was given a 14 day supply of Abilify 20 mg po to cross transition to the injectable. He discharged on a three day notice of intent on 06/10 and will return to his [facility] out pt team for ongoing out pt care. Status at Discharge Functional status at discharge: independent ambulation Overall status at discharge: patient is back to baseline Time Spent with Patient Time attestation: Total time managing care of this patient today ____ minutes. Time spent: Less than 30 minutes Discharge Plan Discharge Anticipated Discharge Date/Time: 06/10/25 10:37 Patient Disposition: Home, Self-Care Discharge Diagnosis: Schizophrenia Referrals: [facility] Medication Mgmt esdras Ross [Other] - 06/16/25 1:[address] [facility] Therapy with Michela Roberts [Other] - 06/15/25 10:30 am [facility] Care Management [Other] - 07/02/25 10:45 am Referral Note: They can help with case management and resources in the community. Physician,Unknown J [Primary Care Provider, Medical] - 1 Week Discharge Medications: New clonidine HCl 0.1 mg Tablet 0.1 mg PO BEDTIME Qty: 30 0RF Protocol: Hold for SBP< HOLD for SBP < : 90 acetaminophen 325 mg Tablet 650 mg PO Q6H PRN (Reason: Headache/Pain, Scale 1-10) Qty: 0 0RF nicotine (polacrilex) 2 mg Gum 4 mg buccal Q2H PRN (Reason: Nicotine Cravings) Qty: 110 0RF melatonin 3 mg Tablet 6 mg PO BEDTIME Qty: 60 0RF trazodone 100 mg Tablet 300 mg PO BEDTIME Qty: 90 0RF hydroxyzine HCl 25 mg Tablet 25 mg PO Q6H PRN (Reason: mild anxiety) Qty: 30 0RF aripiprazole [Abilify] 20 mg Tablet 20 mg PO DAILY Qty: 14 0RF Continued olanzapine 5 mg Tablet 5 mg PO BID PRN (Reason: agitation/voices) 30 Days Qty: 60 0RF Discontinued trazodone 100 mg tablet 200 mg PO BEDTIME 30 Days Qty: 60 0RF aripiprazole 30 mg tablet 30 mg PO DAILY 30 Days Qty: 30 0RF Discharge Orders: Discharge Order (Routine); Ordered 06/10/25 Ordered By: Anna Ordoñez Diet: Advance to usual diet Activity on Discharge: As tolerated Stand Alone Forms: Patient Portal Discharge page, Community Support Print Language: English Care Plan Goals: Mood and Behavioral Stabilization Health Concerns: Mood and Behavioral Stabilization Plan of Treatment: Take medications as directed Attend scheduled appointments On 06/10/25 you received Abilify Maintena 400 mg IM. You have been given #14 tabs of po Abilify 20 mg to take daily while the Maintena establishes its efficacy in your system. Call/Return as needed Assessment: Discharge on a three day notice of intent. Pt agrees with plan of care. Denies SI,HI,AH,VH. No sx of acute sulema or psychosis Discharge Date/Time: 06/10/25 11:15
== END 2025-06-10 11:15 | disposition home or self-care (01) | DRG 750 ==
LOC: HO.ED 11:58 → HO.PM5 06-03 12:06
PROVIDERS: Admitting Provider Nurse Practitioner Family; Emergency Provider Emergency Medicine; Visit Provider Nurse Practitioner Family
DX: F20.9 Schizophrenia, unspecified (principal); R45.851 Suicidal ideations; Z91.148 Patient's other noncompliance with medication regimen for other reason; F17.210 Nicotine dependence, cigarettes, uncomplicated; Z71.6 Tobacco abuse counseling; Z79.899 Other long term (current) drug therapy
CPT/HCPCS: 36415; 73080; 73090; 73130; 80053; 80061; 80307; 81003; 83036; 84443; 85025; 93005; 99285; J0401; J1200; J1630; J3360; J3486; S9485

== ENCOUNTER → 2025-06-01 19:13 | Outpatient (BNV) | payer MEDICAID, SELFPAY | PROVIDERS: Emergency Provider Emergency Medicine; Visit Provider Radiology Neuroradiology | DX: M79.641 Pain in right hand (principal); M79.601 Pain in right arm | CPT/HCPCS: 73090; 73130 ==

== ENCOUNTER → 2025-06-02 10:10 | Outpatient (BNV) | payer MEDICAID, SELFPAY | PROVIDERS: Emergency Provider Emergency Medicine; Visit Provider Internal Medicine Cardiovascular Disease | DX: Z13.6 Encounter for screening for cardiovascular disorders (principal) | CPT/HCPCS: 93010 ==

== ENCOUNTER 2025-06-03 11:24 | Outpatient (BNV) | payer MEDICAID, SELFPAY | END 2025-06-09 09:51 | PROVIDERS: Admitting Provider Nurse Practitioner Family; Emergency Provider Emergency Medicine; Visit Provider Radiology Diagnostic Radiology | DX: M25.521 Pain in right elbow (principal) | CPT/HCPCS: 73080 ==

== ENCOUNTER → 2025-06-03 11:24 | Outpatient (BNV) | payer OTHER, SELFPAY | PROVIDERS: Admitting Provider Nurse Practitioner Family; Emergency Provider Emergency Medicine; Visit Provider Nurse Practitioner Family | DX: F20.9 Schizophrenia, unspecified (principal); R45.851 Suicidal ideations; R44.0 Auditory hallucinations | CPT/HCPCS: 99232 ==

== ENCOUNTER 2025-07-09 18:42 | Outpatient (REF) | payer OTHER, SELFPAY | END 2025-07-09 18:43 | disposition home or self-care (01) | LOC: HO.HHCLNP 18:42 | PROVIDERS: Visit Provider Family Medicine | DX: L02.419 Cutaneous abscess of limb, unspecified (principal) | CPT/HCPCS: 87070; 87077; 87186; 87205 ==

== ENCOUNTER 2025-09-10 12:41 | Emergency (ER) | payer MEDICAID, SELFPAY ==
[2025-09-10 12:53] VITALS: BP 117/76; PULSE 107; RESP 18; TEMP 36.7; O2SAT 96; BMI 28.6
--- NOTE | 2025-09-10 12:53 | ED.PSYCH ---
HPI - Psych General Chief Complaint: Psychiatric Symptoms Stated Complaint: hearing voices Time Seen by Provider: 09/10/25 13:25 Source: patient, RN notes reviewed and old records reviewed Mode of arrival: ambulatory History of Present Illness ED Provider: Emili GOMEZ Narrative: Patient is a 40-year-old male with history of schizophrenia presenting to the emergency department with complaint of command auditory hallucinations to kill himself. Denies visual hallucinations. States that he has not been taking his medications as prescribed. Denies any current physical complaints, however, is currently on antibiotics for an axillary abscess. States he started taking the antibiotics yesterday morning. Denies any visual hallucinations. Admits to using cannabis. Reports all his symptoms began in 2018. States that he has ?lots of voices from the speaking to me. ? complaint: suicidal ideation and hallucinations Related Data Home Medications ?Medication ?Instructions ?Recorded ?Confirmed aripiprazole 300 mg suspension, 300 mg IM QMONTH 09/10/25 09/10/25 extended rel. intramuscular syringe (Trudi Baldwin) cephalexin 500 mg capsule 500 mg PO TID 09/10/25 09/10/25 haloperidol 0.5 mg tablet 0.5 mg PO DAILY PRN Anxiety 09/10/25 09/10/25 sulfamethoxazole 800 1 tab PO BID 09/10/25 09/10/25 mg-trimethoprim 160 mg tablet Previous Rx's ?Medication ?Instructions ?Recorded acetaminophen 325 mg tablet 650 mg (2 x 325 mg) PO Q6H PRN 06/10/25 Headache/Pain, Scale 1-10 #0 tabs melatonin 3 mg tablet 6 mg (2 x 3 mg) PO BEDTIME #60 tabs 06/10/25 nicotine (polacrilex) 2 mg gum 4 mg buccal Q2H PRN Nicotine 06/10/25 Cravings #110 ea trazodone 100 mg tablet 300 mg (3 x 100 mg) PO BEDTIME #90 06/10/25 tabs Allergies Allergy/AdvReac Type Severity Reaction Status Date / Time From VICODIN AdvReac Severe NAUSEA & Uncoded 09/10/25 12:56 VOMITING Review of Systems Review of Systems: As per HPI Yes all other systems are reviewed and are negative Constitutional: Constitutional: Reports as per HPI PMFSH Social History Social History Household Members: Family Housing: Apartment Do you presently have visiting nurse or other home services: No Patient Tobacco Use Status: Current everyday Tobacco user Tobacco use type: Cigarette Cigarettes Per Day: 8 e-Cigarette/Vaping Use: Never Used Second Hand Smoke Exposure: No Substance Use Type: Marijuana Advance Directives: No Advance Directives Information Provided: No Do you have a plan to hurt others: No Plan service: No Sexual orientation: Straight/Heterosexual Physical Exam Vital Signs: Vital Signs: Last Vital Signs Temp 98.2 F 09/11/25 05:43 Pulse 66 09/11/25 05:43 Resp 16 09/11/25 05:43 BP 100/66 09/11/25 05:43 Pulse Ox 96 09/11/25 05:43 O2 Del Method Room Air 09/11/25 05:43 BMI result Body Mass Index 28.6 Vital signs have been reviewed and appear to be correct. Blood pressure normal. Heart rate normal. Respiratory rate normal. Temperature normal. Oxygen saturation normal. Const: General: cooperative, healthy appearing and no acute distress Orientation/consciousness: oriented to person, oriented to place, oriented to time and patient oriented x3 Limitations: no limitations HEENT: Head: Yes normocephalic and Yes atraumatic Ears: external ears normal General nose exam: Normal external nose present Face and sinus: Yes face symmetric Mouth: oropharynx normal and moist mucous membranes Throat: Yes uvula midline Eyes: Pupils: Equal, round and reactive pupils present Neck: Neck: Yes normal visual inspection and Yes supple Resp: Effort & Inspection: normal respiratory effort and able to speak in complete sentences Auscultation: clear to auscultation bilaterally Cardio: Rate: regular rate Rhythm: regular rhythm Heart sounds: S1 normal heart sound present and S2 normal heart sound present GI: Palpation (GI): Soft to palpation and nontender Auscultation: normoactive bowel sounds : General: Yes no CVA tenderness Back/Spine/Pelvis: Back: no CVA tenderness Skin: General skin exam: elasticity normal and turgor normal Neuro: General: oriented to person, oriented to place, oriented to time, patient oriented x3, moves all extremities, no focal motor deficits and CN's II-XI intact bilaterally Cranial nerves: Yes Equal, round and reactive pupils present Cognition (Neuro): normal cognition Extrem: General: Yes full ROM, Yes no pedal edema and Yes no calf tenderness Psych: Mental Status: mental status grossly normal Speech and movement: Normal speech and movement present Affect: normal affect Attitude: cooperative Thought process: Normal thought process present Thought content: Suicidality present, no homicidality, Paranoid delusions present and Hallucination(s) present Insight: Limited insight present (Psych) Judgement: Limited judgement present (Psych) Course Course Course Narrative: This is an RME: Additional HPI, ROS, PE not included below will be deferred to primary provider. RME assessment and note performed by: Christina Guajardo PA-C This is a [id number]-male, with a hx of who presents to the ER with a complaint of suicidal ideation and hearing voices. +marijuana. Reports plan to overdose on pills. On medications - reports that he just started taking them . Denies recent drug use, hx of heroin use Plan: Labs, UA, EKG, crisis eval Reevaluation(s) Reevaluation #1: 11:28 AM 09/11/2025 (Dr. Brandon Shrestha): Time: 11:28 Date: 09/11/25 Provider: Brandon Shrestha DO Physician observation ended Patient has been cleared for discharge by the CARE team. Will follow up as an outpatient. Medications Administered Generic Name Dose Route Start Last Admin Trade Name Aida PRN Reason Stop Dose Admin Cephalexin HCl 500 mg 09/10/25 15:00 09/11/25 08:00 Cephalexin 500 Mg Capsule PO 09/22/25 21:01 500 mg TID YUNG Administration Melatonin 6 mg 09/10/25 21:00 09/10/25 20:09 Melatonin 3 Mg Tablet PO 6 mg BEDTIME YUNG Administration Trazodone HCl 300 mg 09/10/25 21:00 09/10/25 20:09 Trazodone Hcl 100 Mg Tablet PO 300 mg BEDTIME YUNG Administration Trimethoprim/Sulfamethoxazole 1 tab 09/11/25 09:00 09/11/25 09:19 Sulfamethox/Trimeth 800/160 Tablet PO 09/23/25 09:01 1 tab BID YUNG Administration Medical Decision Making Medical Decision Making MDM Narrative: Patient is a 40-year-old male with history of schizophrenia presenting to the emergency department with complaint of command auditory hallucinations to kill himself. On exam patient is awake, A+Ox3, VS WNL, afebrile, normal neurological exam without focal deficits, physical exam findings as above. Given reported symptoms and physical exam findings, initial differential includes but is not limited to suicidal ideation, auditory hallucinations, schizophrenia, medication noncompliance. Will plan for medical clearance then care team evaluation. Will continue patient on his Bactrim and Keflex. Labs unremarkable. Urine drug screen positive for fentanyl and cannabis. Ethanol negative. UA is without evidence of infection. Will medically clear patient at this time and place on physician observation for care team evaluation. Differential Diagnosis Differential Diagnoses: The differential diagnosis associated with the presentation includes As per [facility] Admission/Observation Consideration of admission/observation: Escalation of care including admission/observation considered Consult Healthcare Provider Management of the patient was discussed with: Behavioral Health Provider Lab Data [facility] Lab Attestation statement: I reviewed the patient's lab results. as per [facility] 09/10/25 13:43 09/10/25 13:43 Labs: Lab Results 09/10/25 09/10/25 Range/Units 13:43 13:45 WBC 9.1 (4.8-10.8) X10*3/uL RBC 5.25 (4.60-5.80) X10*6/uL Hgb 16.2 (14.0-18.0) g/dl Hct 48.0 (42.0-52.0) % MCV 91.4 (80.0-98.0) fL MCH 30.9 (27.0-33.0) pg MCHC 33.8 (31.0-36.0) g/dl RDW 12.4 (11.0-16.0) % Plt Count 280 (160-400) X10*3/uL MPV 9.1 L (9.4-12.4) fL Immature Gran % (Auto) 0.2 (0.0-0.4) % Neut % (Auto) 72.8 (45-73) % Lymph % (Auto) 20.3 (20-40) % [place] % (Auto) 5.8 (2-11) % Eos % (Auto) 0.5 (0-4) % Baso % (Auto) 0.4 (0-2) % Lymph # (Auto) 1.9 (1.2-4.9) X10*3/uL [place] # (Auto) 0.5 (0.1-1.2) X10*3/uL Eos # (Auto) 0.1 (0.0-0.4) X10*3/uL Baso # (Auto) 0.0 (0.0-0.2) X10*3/uL Abs Immat Gran (auto) 0.02 (0.00-0.03) X10*3/uL Absolute Neuts (auto) 6.6 (2.0-8.3) x10*3/uL Absolute Nucleated RBC 0.000 (0.0-0.012) X10*3/uL Nucleated RBC % (auto) 0.0 (0.0-0.2) /100WBC Sodium 139 (135-145) mmol/L Potassium 3.9 (3.3-5.1) mmol/L Chloride 106 (96-108) mmol/L Carbon Dioxide 27 (22-29) mmol/L Anion Gap 10 L (12-20) BUN 14 (9-16) mg/dL Creatinine 1.21 (0.5-1.4) mg/dL Estim Creat Clear Calc 92.7 Estimated GFR > 60 Random Glucose 144 H (60-115) mg/dL Calcium 9.3 (8.4-10.2) mg/dL Total Bilirubin 0.4 (0.0-1.0) mg/dL AST 39 H (5-37) U/L ALT 18 (0-40) U/L Alkaline Phosphatase 92 (39-117) U/L Total Protein 7.2 (6.5-8.0) g/dL Albumin 4.6 (3.5-5.0) g/dL Urine Color Yellow Urine Appearance Clear Urine pH 6.5 (5.0-9.0) Ur Specific [place] >= 1.030 H (1.005-1.025) Urine Protein Negative (Neg-Trace) mg/dL Urine Glucose (UA) Negative (Negative) mg/dL Urine Ketones 15 (Negative) mg/dL Urine Blood Negative (Negative) Urine Nitrite Negative (Negative) Ur Leukocyte Esterase Negative (Negative) Salicylates < 5.0 L (15-30) mg/dL Urine Opiates Screen Not Detected (Not Detect) Ur Buprenorphine Scrn Not Detected (Not Detect) ng/mL Ur Oxycodone Screen Not Detected (Not Detect) ng/mL Urine Methadone Screen Not Detected (Not Detect) ng/mL Urine Fentanyl Screen POSITIVE H (Not Detect) Acetaminophen < 3 (<30) mcg/mL Ur Barbiturates Screen Not Detected (Not Detect) Ur Phencyclidine Scrn Not Detected (Not Detect) Ur Amphetamines Screen Not Detected (Not Detect) U Benzodiazepines Scrn Not Detected (Not Detect) Urine Cocaine Screen Not Detected (Not Detect) U Marijuana (THC) Screen POSITIVE H (Not Detect) Ethyl Alcohol < 10 mg/dL External Record Review External record reviewed: Inpatient record, Office record and Outpatient record Discharge Plan Discharge Clinical Impression: Schizophrenia, Suicidal ideation, Auditory hallucination Patient Disposition: Home, Self-Care Additional Instructions: You were seen in our Emergency Department today for treatment of a behavioral health issue. It is important after your visit that you follow up with either your behavioral health provider or a primary care doctor within 7 days.? If you have trouble finding a therapist you can reach out to [place] [phone] [facility] [place] [facility] can be reached 7 days a week 24 hours a day.? Call [phone] to speak with someone.? Return for any worsening symptoms or concerns such as thoughts of self harm or harm to others. Please call 911 if you feel your mental health is worsening.? Prescriptions: No Action acetaminophen 325 mg Tablet 650 mg PO Q6H PRN (Reason: Headache/Pain, Scale 1-10) Qty: 0 0RF nicotine (polacrilex) 2 mg Gum 4 mg buccal Q2H PRN (Reason: Nicotine Cravings) Qty: 110 0RF melatonin 3 mg Tablet 6 mg PO BEDTIME Qty: 60 0RF trazodone 100 mg Tablet 300 mg PO BEDTIME Qty: 90 0RF haloperidol 0.5 mg tablet 0.5 mg PO DAILY PRN (Reason: Anxiety) sulfamethoxazole-trimethoprim 800-160 mg tablet 1 tab PO BID cephalexin 500 mg capsule 500 mg PO TID Abilify Maintena 300 mg suspension,extended rel syring 300 mg IM QMONTH Interventions: [place]-Suicide Risk Severity Scale Last Done: 09/10/25 14:10 Print Language: Ghanaian
--- NOTE | 2025-09-10 12:56 | ECG_ITS ---
Test Reason : CLEARANCE Blood Pressure : */* mmHG Vent. Rate : 80 BPM Atrial Rate : 80 BPM P-R Int : 154 ms QRS Dur : 78 ms QT Int : 342 ms P-R-T Axes : 60 61 35 degrees QTcB Int : 394 ms Normal sinus rhythm with sinus arrhythmia Normal ECG When compared with ECG of 02-Jun-2025 10:17, No significant change was found Referred By: Christina Guajardo Electronically Signed By: RAPHAEL SMILEY MD
[2025-09-10 13:33] VITALS: BP 105/69; PULSE 90; RESP 20; TEMP 37; O2SAT 96
[2025-09-10 13:54] LABS: Hematocrit 48.0 % (42.0-52.0); Hemoglobin 16.2 g/dl (14.0-18.0); Imm Gran Abs Auto 0.02 X10*3/uL (0.00-0.03); Imm Gran Pct Auto 0.2 % (0.0-0.4); Lymphocytes Absolute Auto 1.9 X10*3/uL (1.2-4.9); MANUAL DIFF FLAG NO; Mean Corpuscular HGB Conc 33.8 g/dl (31.0-36.0); Mean Corpuscular Hemoglobin 30.9 pg (27.0-33.0); Mean Corpuscular Volume 91.4 fL (80.0-98.0); NRBC Abs Auto 0.000 X10*3/uL (0.0-0.012); NRBC Pct Auto 0.0 /100WBC (0.0-0.2); Platelet Count 280 X10*3/uL (160-400); Red Blood Count 5.25 X10*6/uL (4.60-5.80); White Blood Count 9.1 X10*3/uL (4.8-10.8)
[2025-09-10 13:57] LABS: Appearance Urine Clear; Glucose Urine UA Negative (Negative); PH 6.5 (5.0-9.0); Specific Gravity - Urine >= 1.030 (1.005-1.025)
[2025-09-10 14:05] LABS: Cannabinoid Screen Urine POSITIVE (Not Detect)
[2025-09-10 14:09] LABS: Acetaminophen LAB < 3 mcg/mL (<30); Alanine Aminotransferase 18 U/L (0-40); Albumin Level 4.6 g/dL (3.5-5.0); Alkaline Phosphatase 92 U/L (39-117); Anion Gap 10 (12-20); Aspartate Amino Transferase 39 U/L (5-37); Blood Urea Nitrogen 14 mg/dL (9-16); Calcium 9.3 mg/dL (8.4-10.2); Carbon Dioxide 27 mmol/L (22-29); Chloride 106 mmol/L (96-108); Creatinine Clr Calc Pharmacy 92.7; Estimated Glomerular Filt Rate > 60; Potassium 3.9 mmol/L (3.3-5.1); Salicylate < 5.0 mg/dL (15-30); Sodium 139 mmol/L (135-145); Total Protein 7.2 g/dL (6.5-8.0)
--- NOTE | 2025-09-10 16:16 | PHA.MEDREC ---
Pharmacy Consult ? Medication Reconciliation Pharmacy has completed the medication reconciliation. Reviewed med rec completed by nursing
--- NOTE | 2025-09-10 17:57 | P.EN_ITS ---
Documented by User: Anna Ordoñez APRN 09/10/25 18:00 Event Note Date of Service: 09/10/25 Event Note: Received a message at 1756 from Justo Ross APRN of [facility] that pt is currently working with him for medication management. Justo reports he administered Abilify Maintena 300 mg IM today. Pt told team at [facility] he would be coming to the ER for assistance with severe levels of auditory perceptual alterations. Time Spent With Patient Time: Total time managing care of this patient today ____ minutes. Documented by User: Jose Cortés MD 09/11/25 16:15 Event Note Date of Service: 09/11/25
--- NOTE | 2025-09-10 22:40 | PC.NURSE ---
Pt has been calm and cooperative. He has had difficulty sleeping and spends time pacing on the unit.
--- NOTE | 2025-09-11 00:36 | PC.NURSE ---
Took over care from CORY Khan, pt sleeping at this time.
--- NOTE | 2025-09-11 03:26 | MHC.EDTECH ---
Note on nursing station clothing in the dryer. Clothes are dry placed in belongings bag. assumptions that they are the patient but there is no descriptive details on the belongings list.
--- NOTE | 2025-09-11 04:44 | PC.NURSE ---
pt sleeping at this time.
[2025-09-11 05:43] VITALS: BP 100/66; PULSE 66; RESP 16; TEMP 36.8; O2SAT 96
--- NOTE | 2025-09-11 07:30 | PC.NURSE ---
Assumed care of patient at 0645, patient appears to be in no apparent distress this am, ambulating with steady gait around BH pod, calm and cooperative, offering no complaints to this RN. Continue plan of care for CARE team follow up
[2025-09-11] MEDS: Sulfamethox/Trimeth 800/160 TABLET 1 TAB PO (09:19)
[2025-09-11 11:34] VITALS: BP 100/66; PULSE 66; RESP 16; TEMP 36.8; O2SAT 96
== END 2025-09-11 12:43 | disposition home or self-care (01) ==
PROVIDERS: Physician Assistant Medical; Emergency Provider Emergency Medicine
DX: F25.9 Schizoaffective disorder, unspecified (principal); R45.851 Suicidal ideations; I49.9 Cardiac arrhythmia, unspecified; Z51.81 Encounter for therapeutic drug level monitoring; Z79.899 Other long term (current) drug therapy
CPT/HCPCS: 36415; 80053; 80143; 80179; 80307; 81003; 85025; 93005; 99285; S9485

== ENCOUNTER → 2025-09-10 12:56 | Outpatient (BNV) | payer MEDICAID, SELFPAY | PROVIDERS: Emergency Provider Emergency Medicine; Visit Provider Internal Medicine Cardiovascular Disease | DX: Z13.6 Encounter for screening for cardiovascular disorders (principal) | CPT/HCPCS: 93010 ==